=== PATIENT | male | born 1995 | race Two or more races ===

== ENCOUNTER 2024-11-12 17:35 | Emergency (ER) | payer MEDICAID, SELFPAY ==
[2024-11-12 17:37] VITALS: BP 135/83; PULSE 108; RESP 18; TEMP 36.9; O2SAT 100; BMI 27.8
--- NOTE | 2024-11-12 18:43 | XR_ITS ---
Examination: Duplex scan of the lower extremity, unilateral left Date and time of exam: November 12, 2024 1856 hrs. Indications: Left lower leg pain and swelling beginning today Technique: Duplex scan of the extremity veins using B-mode/grayscale imaging and Doppler spectral analysis and color flow Attention is directed to internal echogenicity, compression and augmentation involving these veins, color flow assessment, spectral analysis Findings: Major deep venous structures in the extremity demonstrate normal course and caliber. There is no evidence of deep vein thrombosis. Normal color flow and spectral analysis Impression: Negative for DVT..
--- NOTE | 2024-11-12 18:43 | PD.EDEXREM ---
ED Extremity Problem RME/HPI General Chief complaint: Extremity Problem,Nontraumatic Stated complaint: R/O DVT, PENITENTIARY CLEARANCE Time Seen by Provider: 11/12/24 18:21 Arrival date/time: 11/12/24 17:35 RME / HPI RME / HPI Narrative: 29-year-old male patient with no significant past medical history, was brought in by [facility] regarding left lower leg pain and swelling patient woke up this morning with pain and swelling to the left lower leg, described as dull ache, severity moderate. Denies any trauma denies any chest pain denies any other complaints except that while in the longterm he was noted to be having elevated blood pressure. No medication was taken prior to arrival Related Data Home Medications ?Medication ?Instructions ?Recorded ?Confirmed aspirin 325 mg tablet 325 mg PO QDAY 07/29/20 07/29/20 hydrocodone 10 mg-acetaminophen 1 - 2 tab PO Q4H PRN Pain 07/29/20 07/29/20 325 mg tablet ibuprofen 800 mg tablet 800 mg PO Q8H PRN Pain 07/29/20 07/29/20 oxycodone 10 mg tablet,extended 10 mg PO Q12H PRN Pain 07/29/20 07/29/20 release,12 hr Previous Rx's ?Medication ?Instructions ?Recorded amoxicillin 500 mg capsule 500 mg PO BID #14 caps 10/19/22 ibuprofen 800 mg tablet 800 mg PO Q8H PRN pain #20 tabs 10/19/22 ibuprofen 800 mg tablet 800 mg PO TID PRN pain #30 tabs 02/06/23 Allergies Allergy/AdvReac Type Severity Reaction Status Date / Time No Known Allergies Allergy Verified 11/12/24 18:17 Review of Systems Review of Systems Narrative Review of Systems: Review of system reviewed and within normal limits except mentioned in HPI ED Exam Narrative Physical exam: VITAL SIGNS: Reviewed. GENERAL APPEARANCE: Alert and interactive, follows commands, no acute distress, HEAD AND FACE: Non-traumatic. ENT: PERRL, pink conjunctivitis, eyelid no trauma, Mucous membrane moist. NECK: Supple, nontender, no nuchal rigidity. CHEST: No tenderness, no crepitus, no paradoxical movement, no retractions. LUNGS: Clear, well ventilated, symmetric, no rales, no wheezing, no ronchi, no stridor, good breath sounds bilaterally. HEART: Regular rate, regular rhythm, no murmur, no gallops. ABDOMEN: Soft, positive bowel sounds, nondistended, no guarding, nontender, no rebound, no masses, RECTAL: Deferred. GENITAL: Deferred. NEUROLOGICAL: Gross motor function intact sensory function intact, Appropriate for age. MUSCULOSKELETAL: low back nontender, full range of motion. EXTREMITIES: Left lower leg tenderness, more on the calf muscle, no redness mild swelling , Full range of motion of the ankle joints and knee joints SKIN: Color pink, dry, no rash, no lacerations, no abrasions, no contusions. LYMPHATICS: Deferred. Course Quality Measures none Orders Category Date Time Status ronnell wrap [Splint / Immobilizer] STAT Care 11/12/24 20:23 Active US venous doppler LE LT Stat Exams 11/12/24 18:43 Completed CBC [CBC] Stat Lab 11/12/24 18:58 Completed CMP [Comprehensive Metabolic Panel] Stat Lab 11/12/24 18:58 Completed PTT [Partial Thromboplastin Time] Stat Lab 11/12/24 18:58 Completed Ketorolac Inj [Toradol Inj] Med 11/12/24 18:43 Discontinued 30 mg IM X1 ONE Ketorolac Inj [Toradol Inj] Med 11/12/24 19:00 Discontinued 30 mg IVP X1 ONE Vital Signs Vital signs: Vital Signs Temperature 98.5 F 11/12/24 17:37 Pulse Rate 108 H 11/12/24 17:37 Respiratory Rate 18 11/12/24 17:37 Blood Pressure 135/83 H 11/12/24 17:37 Pulse Oximetry (%) 100 11/12/24 17:37 Oxygen Delivery Method Room Air 11/12/24 17:37 Extremity Problem MDM Narrative MDM Narrative:: 29-year-old male patient with no significant past medical history, was brought in by [facility] regarding left lower leg pain and swelling patient woke up this morning with pain and swelling to the left lower leg, described as dull ache, severity moderate. Denies any trauma denies any chest pain denies any other complaints except that while in the longterm he was noted to be having elevated blood pressure. No medication was taken prior to arrival Ultrasound of the lower extremities negative for DVT. Patient's laboratory Significant for elevated AST and ALT, patient is alcoholic. I advised the patient to stop drinking alcohol before is too late. Patient agrees with the plan. He told me that he is going to stop alcohol abuse. Patient is medically cleared to go back to the longterm. Patient data External records reviewed:: None Clinical information provided by:: patient Social determinants that could affect healthcare access:: alcohol use Patient has the following chronic illnesses:: None How is presenting disease/condition affected by chronic disease/condition?: exacerbated by Evaluation data The following diagnostics were reviewed and interpreted by me:: lab results and radiology exam(s) Lab and/or radiology exams considered but not ordered:: None Interpretation Summary: See results MDM Medications / Prescriptions Medications or Prescriptions considered but not ordered:: None Medication administrations:: Medication Administration History Discontinued Medications Ketorolac Tromethamine (Ketorolac Inj 60 Mg/2 Ml Vial) 30 mg IM X1 ONE Stop: 11/12/24 18:44 Last Admin: 11/12/24 19:01 Dose: Not Given Documented By: DT Non-Admin Reason: Cancelled by Provider Ketorolac Tromethamine (Ketorolac Inj 30 Mg/Ml Vial) 30 mg IVP X1 ONE Stop: 11/12/24 19:01 Last Admin: 11/12/24 19:15 Dose: 30 mg Documented By: DT Toradol and Tylenol Consultations Consultation(s) initiated? (list below): No Diagnosis Extremity Problem Differential Diagnosis: deep venous thrombosis of upper extremity and lower extremity edema Most likely diagnosis given after review of the tests above:: Acute knee pain, no evidence of DVT Admission Indicated Admission indicated?: not indicated Admission Request Was there a request for admission?: No Disposition Plan Disposition Plan: Discharge Discharge Attestation Discharge Attestation: Patient condition: Stable Discharge Plan Plan Patient Disposition: HOME (Self Care) Discharge Disposition comment: Stable Prescriptions/Referrals Prescriptions/Med Rec: No Action aspirin 325 mg Tablet 325 mg PO QDAY ibuprofen 800 mg Tablet 800 mg PO Q8H PRN (Reason: Pain) hydrocodone-acetaminophen [[place]] 10-325 mg Tablet 1 - 2 tab PO Q4H PRN (Reason: Pain) OxyContin 10 mg Tablet Extended Release 12 Hr 10 mg PO Q12H PRN (Reason: Pain) ibuprofen 800 mg tablet 800 mg PO Q8H PRN (Reason: pain) Qty: 20 0RF amoxicillin 500 mg capsule 500 mg PO BID Qty: 14 0RF ibuprofen 800 mg tablet 800 mg PO TID PRN (Reason: pain) Qty: 30 0RF Referrals: No Primary/Family,Physician [Primary Care Provider] - In 1 week Problem List Clinical Impression: Acute knee pain, No deep vein thrombosis (DVT) Patient/Caregiver Discharge Instructions Discharge Activity: activity as tolerated Education Materials: ED RONNELL Wrap Additional Instructions: Thank you for the opportunity for serving you today. You are stable for discharged . You are advised to: Return to ED for worsening of symptoms Increase oral fluids Take Tylenol or Motrin as needed for pain You can apply knee immobilizer / Ronnell wrap to help with the pain Print Language: Samoan Stand Alone Forms: Julieta Award Info., Patient Portal Info Letter PA/[employer] ATTORNEY Supervising Physician PA/[employer] ATTORNEY Supervising Physician: MD Luz
[2024-11-12 19:07] VITALS: BP 146/104; PULSE 90; RESP 16; TEMP 37; O2SAT 99
[2024-11-12 19:09] LABS: Basophils # (Auto) 0.0 Thou/mm3 (0.0-0.2); Basophils % (Auto) 0 % (0-2.5); Eosinophils # (Auto) 0.1 Thou/mm3 (0.0-0.5); Eosinophils % (Auto) 1 % (0-10); Hematocrit 44.4 % (41.0-53.0); Hemoglobin 15.6 g/dL (13.5-16.0); Immature Granulocytes Auto 0.02 Thou/mm3 (0.00-0.00); Lymphocytes # (Auto) 1.2 Thou/mm3 (1.0-4.8); Lymphocytes % (Auto) 16 % (10-50); Mean Corpuscular HGB Conc 35.1 g/dl (31.0-37.0); Mean Corpuscular Hemoglobin 32.2 pg (25.0-35.0); Mean Corpuscular Volume 92 fL (80-100); Monocytes # (Auto) 0.6 Thou/mm3 (0.0-0.8); Monocytes % (Auto) 9 % (0-12); Neutrophils # (Auto) 5.1 Thou/mm3 (1.8-7.7); Neutrophils % (Auto) 73 % (37-80); Nucleated Red Blood Cell # 0.00 Thou/mm3 (0.00-0.00); Nucleated Red Blood Cell % 0 /100 WBC (0); Platelet Count 133 Thou/mm3 (140-440); RDW Standard Deviation 40.5 fL (35.1-43.9); Red Blood Count 4.85 Miln/mm3 (4.50-5.90); White Blood Count 7.0 Thou/mm3 (3.8-10.6)
[2024-11-12 19:15] VITALS: TEMP 37
[2024-11-12] MEDS: KETOROLAC INJ 30 MG/ML VIAL IVP (19:15)
[2024-11-12 19:21] LABS: Partial Thromboplastin Time 22.7 Seconds (22.0-36.0)
[2024-11-12 19:31] LABS: Alanine Aminotransferase 383 U/L (10-49); Albumin, Serum 4.0 gm/dL (3.5-5.0); Albumin/Globulin Ratio 1.5 (1.2-2.2); Alkaline Phosphatase 73 U/L (46-116); Anion Gap 10 (7-16); Aspartate Amino Transferase 595 U/L (0-34); BUN/Creatinine Ratio 8 Ratio (12-20); Bilirubin,Total 1.1 mg/dL (0.3-1.2); Blood Urea Nitrogen 7 mg/dL (9-23); Calcium 9.3 mg/dL (8.3-10.6); Calcium (Corrected) 9.3 mg/dL (8.5-10.1); Carbon Dioxide 22.1 mMol/L (20.0-31.0); Chloride 107 mMol/L (98-107); Creatinine (Component) 0.9 mg/dL (0.6-1.3); Estimated Creatinine Clearance 140.8 mL/min (>60); Globulin 2.6 gm/dL (2.3-3.5); Glucose 101 mg/dL (74-106); Osmolality,Calculated 275 (275-295); Potassium 3.8 mMol/L (3.4-5.1); Sodium 139 mMol/L (136-145); Total Protein 6.6 gm/dL (5.7-8.2); eGFR > 60 See Note
[2024-11-12 19:39] VITALS: BP 141/97; PULSE 85; RESP 14; O2SAT 99
[2024-11-12] MEDS: ACETAMINOPHEN 500 MG TABLET 1000 MG PO (20:41)
[2024-11-12 20:47] VITALS: BP 160/100; PULSE 85; RESP 14; TEMP 37; O2SAT 99
== END 2024-11-12 20:48 | disposition home or self-care (01) ==
PROVIDERS: Nurse Practitioner Family; Emergency Provider Emergency Medicine
DX: M25.562 Pain in left knee (principal)
CPT/HCPCS: 36415; 80053; 85025; 85730; 93971; 96374; 99284; J1885; A9270